=== PATIENT | male | born 1965 | race Caucasian/White ===

== ENCOUNTER 2016-07-17 10:05 | Day surgery (SDC) | payer OTHER ==
[~2016-07-17] VITALS: Ht 180.3 cm; Wt 100.0 kg
[~2016-07-17 10:05] MED LIST: 0.9% Sodium Chloride 1,000 ML IV PRN; FIBER PO; LACT1CAP73 PO; MULT1CAP33 PO; Sodium Chloride LOK Flush 10 mL Syringe IV PRN; fentaNYL-PF 50 mCg/mL 2 mL Inj IVPUSH PRN
[2016-07-17 11:11] VITALS: BP 129/80; PULSE 68; RESP 16; O2SAT 99
--- NOTE | 2016-07-17 12:22 | PCM.ENDEGD ---
EGD Date of Service: Jul 17, 2016 Physician Liang Kingsley MD Pre Procedure Diagnosis: Reflux Post Procedure Dx & Findings: Esophagitis pancreatic rest gastric erosion Procedure Esophagogastroduodenoscopy After proper sedation, Olympus video endoscope was inserted into patient's mouth and esophagus was successfully intubated. Scope introduced esophagus. Esophagus showed normal shiny whitish mucosa consistent with squamous cell component. Z line was intact at 40 cm from the incisors. Inflammation and irregular Z line with nonobstructing Schatzki's ring noted. Biopsies obtained The scope was further advanced to the stomach. Cardia fundus body showed normal shiny mucosa with normal appearing rugae folds without any ulcer mass erosion. However at the antrum, there was a 1 cm pancreatic rest. This was biopsied. There were 2 erosions which were also biopsied. Cardia fundus body antrum pylorus were all visualized. Retroflexion was done. Stomach was easily inflated and deflatable using air. Scope further events to the distal duodenum. Duodenum revealed normal villous structures with normal appearing folds without any mass ulcer erosion. Impression Esophagitis biopsy obtained Nonobstructing Schatzki's ring biopsy obtained placed in the same bottle as the esophagitis Gastric erosion biopsy obtained Pancreatic rest biopsy obtained Recommendation Continue PPI Follow-up in the GI clinic with PA Presedation Assessment Risks and Benefits Informed consent was obtained from the patient after all risks and benefits including but not limited to drug reaction, infection, pain, bleeding, perforation, as well as alternatives were discussed. Patient monitoring Continuous pulse oximetry, cardiac monitoring, blood pressure monitoring, IV access, and oxygen at 2L per nasal cannula. Periprocedural Fentanyl: Fentanyl 150mcg Incrementally Midazolam: Midazolam 7mg Incrementally Complications There were no periprocedural complications identified. Post Procedure Plan Post Procedure Recommendations 1. Restrict activities today. 2. Resume normal activities in the morning. 3. Resume medications. 4. GERD behavioral modification: - Avoid fatty, acidic, spicy, large meals - Do not lie down after meals - Do not eat or drink anything for at least 2 1/2 hours before going to bed at night - Discontinue tobacco and alcohol - Decrease or avoid caffeine - Avoid chocolate and mints - Decrease weight - Avoid aspirin and non steroidal anti-inflammatory agents (NSAID) such as Aleve, Advil, Mobic, Naproxen, Ibuprofen, etc 5. Add proton pump inhibitor. Take 30 minutes before 1st meal of the day. 6. Patient informed of normal post procedure side effects as bloating, drowsiness, blood streaking in the stool 7. If gastric biopsy reveal H.pylori, continue with appropriate treatment 8. If small bowel biopsy reveals celiac, continue with appropriate treatment 9. Please don't hesitate to call me with any questions Liang Kingsley MD Jul 17, 2016 12:22
--- NOTE | 2016-07-17 12:41 | PCM.ENDCOL ---
Colonoscopy Date of Service: Jul 17, 2016 Physician Liang Kingsley MD Pre Procedure Diagnosis: Screening Post Procedure Dx & Findings: Polyps hemorrhoids diverticula Procedure Colonoscopy Prep adequate Withdrawal time 11 minutes After unremarkable rectal examination the Olympus video colonoscope was inserted patient's anal canal and was advanced to cecum. Landmarks were identified including the ileocecal valve and appendiceal orifice. Scope was withdrawn systematically. Visualized colonic mucosa showed healthy shiny mucosa with normal healthy-appearing vasculature. In the ascending colon, there was a 1 mm polyp which was removed completely using cold forceps. The sigmoid colon, there was a 2 mm polyp which was removed completely using cold snare. In the sigmoid colon there were several small diverticuli In the rectum retroflexion was done which showed hemorrhoids. Anal canal was inspected carefully on the way out and hemorrhoids noted. Impression Polyp 2 cm was completely removable Diverticula Hemorrhoids Recommendation Repeat colonoscopy in 5 years Diverticular diet Presedation Assessment Risks and Benefits Informed consent was obtained from the patient after all risks and benefits including but not limited to drug reaction, infection, pain, bleeding, perforation, as well as alternatives were discussed. Patient monitoring Continuous pulse oximetry, cardiac monitoring, blood pressure monitoring, IV access, and oxygen at 2L per nasal cannula. Complications There were no periprocedural complications identified. Post Procedure Plan Post Procedure Recommendations 1. Restrict activities today. 2. Resume normal activities in the morning. 3. Resume medications. 4. Patient informed of normal post procedure side effects as bloating, drowsiness, blood streaking in the stool. 5. average risk CRCS. If colon polyps come back as: -Hyperplastic- can repeat colonoscopy in 10 years -Tubular adenoma- repeat colonoscopy in 5 years -Tubulovillous/villous adenoma- repeat colonoscopy in 3 years -If any dysplasia- return to clinic as soon as possible 6. Please don't hesitate to call me with any questions. Liang Kingsley MD Jul 17, 2016 12:41
[2016-07-17 12:44] VITALS: BP 116/68; PULSE 80; RESP 14; O2SAT 92
[2016-07-17 12:53] VITALS: BP 106/67; PULSE 82; RESP 15; O2SAT 97
[2016-07-17 12:59] VITALS: BP 106/67; PULSE 82; RESP 16; O2SAT 96
--- NOTE | 2016-07-18 13:03 | PATH ---
SURGICAL PATHOLOGY Attending Physician:Liang Kingsley M.D. CASE STATUS: Signed Out PATIENT NAME: EDY LOPEZ PID: [id number] : 1965 DATE COLLECTED:07/17/2016 20:16 SPECIMEN: 1: Gastric, Biopsy 2: Gastric, Biopsy 3: Esophagus, Biopsy 4: Colon, Biopsy 5: Colon, Biopsy CLINICAL HISTORY: GERD, POLYP 1). GASTRIC BIOPSY 2). PANCREATIC REST BIOPSY 3). DISTAL ESOPHAGUS BIOPSY 4). ASCENDING COLON POLYP X1 5). SIGMOID COLON POLYP X1 FINAL DIAGNOSIS: 1.GASTRIC BIOPSY: GASTRIC ANTRUM WITH MILD CHRONIC GASTRITIS AND INTESTINAL METAPLASIA. Negative for Helicobacter organisms. No evidence of dysplasia or malignancy. 2.GASTRIC BIOPSY: GASTRIC ANTRUM WITH MILD CHRONIC GASTRITIS. Negative for Helicobacter organisms. Negative for intestinal metaplasia. No evidence of dysplasia or malignancy. 3.ESOPHAGUS, BIOPSY: GASTRIC GLANDULAR MUCOSA WITH INTESTINAL METAPLASIA, CONSISTENT WITH CASEY' S ESOPHAGUS. No evidence of dysplasia or malignancy. 4.ASCENDING COLON POLYP: TUBULAR ADENOMA. 5.SIGMOID COLON POLYP: HYPERPLASTIC POLYP. ICD10 CODE K22.7 D12.6 GROSS DESCRIPTION: The specimen is received in five formalin filled containers labeled with the patient's name. 1). The specimen is sublabeled "gastric" and consists of a 0.4 x 0.3 x 0.3 CM portion of tissue which is entirely submitted in cassette 1A. 2). The specimen is sublabeled "pancreatic rest" and consists of a 0.3 x 0.2 x 0.2 CM portion of tissue which is entirely submitted in cassette 2A. 3). The specimen is sublabeled "distal esophagus" and consists of 2 portions of tissue which aggregate to 0.3 x 0.3 x 0.2 CM. 4). The specimen is sublabeled "ascending colon polyp" and consists of a 0.3 x 0.3 x 0.2 CM portion of tissue which is entirely submitted in cassette 4A. 5). The specimen is sublabeled "sigmoid colon polyp" and consists of a 0.3 x 0.3 x 0.2 CM portion of tissue which is entirely submitted in cassette 5A. 07/17/2016 [facility] MICRO DESCRIPTION: See diagnosis. ICD-9 CODES: CPT CODES: 1: 07919 2: 10606 3: 58829 4: 28374 5: 76886 Electronically Signed Out Elio Spears MD [facility] [address], [place] [address] Technical component performed at [facility], [address], [place], [address]
[2016-09-22] MEDS ORDERED: OMEP20CA11 PO (19:48)
== END 2016-07-17 23:59 | disposition home or self-care (01) ==
LOC: END 10:05
PROVIDERS: ATTEND Internal Medicine
DX: Z12.11 Encounter for screening for malignant neoplasm of colon (principal); D12.2 Benign neoplasm of ascending colon; K63.5 Polyp of colon; K57.30 Diverticulosis of large intestine without perforation or abscess without bleeding; K64.8 Other hemorrhoids; K29.50 Unspecified chronic gastritis without bleeding; K22.70 Barrett's esophagus without dysplasia; K21.9 Gastro-esophageal reflux disease without esophagitis; Z80.0 Family history of malignant neoplasm of digestive organs
CPT/HCPCS: 43239; 45380; 99153; G0500; J2250; J3010; J7030

== ENCOUNTER 2016-09-25 07:43 | Day surgery (SDC) | payer OTHER ==
[~2016-09-25] VITALS: Ht 180.3 cm; Wt 99.8 kg
[~2016-09-25 07:43] MED LIST changes: -0.9% Sodium Chloride 1,000 ML IV PRN; +OMEP20CA11 PO; -Sodium Chloride LOK Flush 10 mL Syringe IV PRN; -fentaNYL-PF 50 mCg/mL 2 mL Inj IVPUSH PRN
[2016-09-25] MEDS ORDERED: Sodium Chloride LOK Flush 10 mL Syringe IV PRN (07:50)
[2016-09-25] MEDS ORDERED: 0.9% Sodium Chloride 1,000 ML IV PRN ×2 (07:50)
[2016-09-25] MEDS ORDERED: fentaNYL-PF 50 mCg/mL 2 mL Inj IVPUSH PRN (07:50)
[2016-09-25 08:10] VITALS: BP 138/88; PULSE 63; RESP 17; O2SAT 99
[2016-09-25] MEDS ORDERED: 0.9% Sodium Chloride 1,000 ML IV ONE (09:33)
--- NOTE | 2016-09-25 09:35 | PCM.ENDEGD ---
EGD Date of Service: September 25, 2016 Physician Liang Kingsley MD Pre Procedure Diagnosis: Possible Sanchez's Post Procedure Dx & Findings: Pancreatic rest Sanchez's esophagus gastric nodule duodenal polypoid lesion Procedure Esophagogastroduodenoscopy PROCEDURE IN DETAIL: After proper sedation, Olympus video endoscope was inserted into patient's mouth and esophagus was successfully intubated. Scope introduced esophagus. Esophagus showed normal shiny whitish mucosa consistent with squamous cell component. Z line was not intact at 40 cm from the incisors. No inflammation noted. Narrowing banding used. There was a 2 cm defect in the GE junction consistent with Sanchez's esophagus. No ulcer no erosion no nodule noted. 4 quadrant biopsies obtained. Stomach further events to the stomach. Stomach showed normal shiny mucosa with normal appearing rugae folds without any ulcer mass erosion. There was a 5 mm pancreatic rest noted again. However in the prepyloric area, was noted about 6-7 mm which was biopsied. Cardia fundus body antrum pylorus were all visualized. Retroflexion was done. Stomach was easily inflated and deflatable using air. Scope further events to the distal duodenum. Duodenum revealed normal villous structures with normal appearing folds without any mass ulcer erosion. In the bulb and the first portion of the duodenum, there was about 6-7 mm polypoid lesion.. Narrow banding used. The lesion appeared to be adenomatous. Cold snare polypectomy done. The lesion fell off and inserted into the distal duodenum and it appears we lost the polypoid lesion. Impression Sanchez's esophagus 2 cm Pancreatic rest Prominent fold in the prepylorus. Polypoid lesion in the duodenum was resected. Recommendation Repeat EGD 6-8 month to ensure complete removal of the polypoid lesion Follow-up in the GI clinic. Continue omeprazole. Presedation Assessment Risks and Benefits Informed consent was obtained from the patient after all risks and benefits including but not limited to drug reaction, infection, pain, bleeding, perforation, as well as alternatives were discussed. Patient monitoring Continuous pulse oximetry, cardiac monitoring, blood pressure monitoring, IV access, and oxygen at 2L per nasal cannula. Periprocedural Fentanyl: Fentanyl 125mcg Incrementally Midazolam: Midazolam 7mg Incrementally Complications There were no periprocedural complications identified. Post Procedure Plan Post Procedure Recommendations 1. Restrict activities today. 2. Resume normal activities in the morning. 3. Resume medications. 4. GERD behavioral modification: - Avoid fatty, acidic, spicy, large meals - Do not lie down after meals - Do not eat or drink anything for at least 2 1/2 hours before going to bed at night - Discontinue tobacco and alcohol - Decrease or avoid caffeine - Avoid chocolate and mints - Decrease weight - Avoid aspirin and non steroidal anti-inflammatory agents (NSAID) such as Aleve, Advil, Mobic, Naproxen, Ibuprofen, etc 5. Add proton pump inhibitor. Take 30 minutes before 1st meal of the day. 6. Patient informed of normal post procedure side effects as bloating, drowsiness, blood streaking in the stool 7. If gastric biopsy reveal H.pylori, continue with appropriate treatment 8. If small bowel biopsy reveals celiac, continue with appropriate treatment 9. Please don't hesitate to call me with any questions Liang Kingsley MD September 25, 2016 09:35
[2016-09-25 09:40] VITALS: BP 134/82; PULSE 78; RESP 16; O2SAT 96
[2016-09-25 09:50] VITALS: BP 131/76; PULSE 74; RESP 16; O2SAT 96
[2016-09-25 10:00] VITALS: BP 121/83; PULSE 71; RESP 16; O2SAT 96
--- NOTE | 2016-09-26 11:02 | PATH ---
SURGICAL PATHOLOGY Attending Physician:Liang Kingsley M.D. CASE STATUS: Signed Out PATIENT NAME: EDY LOPEZ PID: [id number] : 1965 DATE COLLECTED:09/25/2016 15:01 SPECIMEN: 1: Gastric, Biopsy 2: Esophagus, Biopsy CLINICAL HISTORY: 1. GASTRIC NODULE BX 2. DISTAL ESOPHAGUS BX FINAL DIAGNOSIS: 1.GASTRIC NODULE BIOPSY: ANTRAL MUCOSA WITH MILD FOVEOLAR HYPERPLASIA AND POSITIVE FOR INTESTINAL METAPLASIA. Negative for significant inflammation. Negative for evidence of Helicobacter. Negative for dysplasia and malignancy. 2.DISTAL ESOPHAGUS BIOPSY: SQUAMOUS MUCOSA AND GASTRIC CARDIA-TYPE MUCOSA POSITIVE FOR SPECIALIZED METAPLASIA OF CASEY' S-TYPE ESOPHAGUS. Negative for dysplasia and malignancy. Negative for squamous intraepithelial eosinophils. ICD10 code K22.70 GROSS DESCRIPTION: The specimen is received in two formalin filled containers labeled with the patient's name. 1). The specimen is sublabeled "gastric nodule" and consists of a 0.3 x 0.3 x 0.3 CM portion of tissue which is entirely submitted in cassette 1A. 2). The specimen is sublabeled "distal esophagus" and consists of 4 tiny portions of tissue which aggregate to 0.2 x 0.2 x 0.2 CM. The specimen is entirely submitted in cassette 2A. 09/25/2016 [facility] MICRO DESCRIPTION: See diagnosis. ICD-9 CODES: CPT CODES: 1: 11462 2: 60358 Electronically Signed Out Yair Krueger MD [facility] [address], [place] [address] Technical component performed at [facility], [facility] [address], [place], [address]
== END 2016-09-25 23:59 | disposition home or self-care (01) ==
LOC: END 07:43
PROVIDERS: ATTEND Internal Medicine
DX: K22.70 Barrett's esophagus without dysplasia (principal); K21.9 Gastro-esophageal reflux disease without esophagitis; K31.7 Polyp of stomach and duodenum; K86.89 Other specified diseases of pancreas
CPT/HCPCS: 43239; 99153; G0500; J7030